=== PATIENT | male | born 2000 | race Caucasian/White ===

== ENCOUNTER 2020-05-14 22:18 | Emergency (ER) | payer BC, SELFPAY ==
--- NOTE | 2020-05-14 22:15 | DI.RAD_ITS ---
EXAM: XR FINGER RT RING CLINICAL HISTORY: crush of fingr tip. TECHNIQUE: 2D digital imaging was performed. COMPARISON: No exams were available for comparison FINDINGS: BONES: Nondisplaced tuft fracture.. No bony destructive lesion is seen. JOINTS: No dislocation present. SOFT TISSUE: Normal. IMPRESSION: Nondisplaced tuft fracture. DATA REPOSITORY: RADIATION DOSE DELIVERED:
[2020-05-14 22:26] VITALS: BP 146/93; PULSE 86; RESP 16; TEMP 36.6; O2SAT 98
--- NOTE | 2020-05-14 22:28 | W.ED.GENAD ---
Discharge Plan Disposition Patient Disposition: HOME Condition: Good Discharge Details Clinical Impression: Contusion of right ring finger Primary Care Provider: None,None ED Provider: Abebe Leyva Home Meds and New Rx's Prescriptions: New cephalexin 500 mg capsule 500 mg PO QID 5 Days Qty: 20 RF: 0 Discharge Instructions Instructions: Subungual Hematoma (ED), Contusion in Adults (ED) Additional Instructions: At this time you do have a small fracture at the distal tip of your finger. Will take a few weeks to heal. Please take the antibiotic as directed to prevent any infection. I would anticipate some drainage from the nail where we cut the nail itself. Eventually the end portion of your fingernail will fall off in diet and will regrow. It will take months for this to finalize. Take Tylenol and Motrin as needed for pain. Please keep the splint on if there is any pain or tenderness. If you notice any worsening of your symptoms, or any new symptoms such as vomiting, diarrhea, fever, chills, shortness of breath, chest pain, numbness, weakness, or fainting , please return immediately to the emergency department for reevaluation. Please follow up with your primary care provider as soon as possible for reassessment and reevaluation. As always, it was a pleasure participating in your medical care today. Medical Decision Making 20-year-old male with no significant past medical history presents today for evaluation of crush injury to the distal tip of his right dominant hand at the tip of the fourth finger. It occurred in about 2 PM today while he is working on his truck, however pain gradually worsened throughout the day and he states that his girlfriend recommended he come in to get checked out. Aside for pain in the distal tip of the fourth finger on the right hand she denies any other complaints or any other injury. Pain is made worse with movement. Improved by nothing. No other complaints at this time. Exam demonstrates contusion and subungual hematoma of the distal tip of the fourth finger on the right dominant hand. Normal neurovascular exam otherwise. Injuries concerning for crush injury and potential distal tuft fracture. Is able to flex and extend well. We will get an x-ray and reassess. Will update his tetanus. 11 PM X-ray results show evidence of tuft fracture. We did trephinate the nail, he tolerated this well. We will give Keflex for home use. We did put a splint on. I have extensively reviewed the treatment plan and discharge instructions with the patient. I have addressed all patient concerns at this time. The patient was made aware of what symptoms to monitor for that would warrant a return to the emergency department. Discussed the plan with the patient, they demonstrate verbal understanding and agreement with our assessment and plan at this time. The documentation in this chart was dictated using [employer] dictation software. Please excuse any dictation errors. FINDINGS: Bones/joints: Tuft fracture of the 4th digit. Soft tissues: Normal. IMPRESSION: Tuft fracture of the 4th digit. Thank you for allowing us to participate in the care of your patient. Dictated and Authenticated by: Vincent Snyder MD 05/14/2020 11:04 PM Eastern Time ([place] & [place]) HPI General Date/Time Provider Initiated Documentation: 05/14/20 22:23. HPI Narrative: 20-year-old male with no significant past medical history presents today for evaluation of crush injury to the distal tip of his right dominant hand at the tip of the fourth finger. It occurred in about 2 PM today while he is working on his truck, however pain gradually worsened throughout the day and he states that his girlfriend recommended he come in to get checked out. Aside for pain in the distal tip of the fourth finger on the right hand she denies any other complaints or any other injury. Pain is made worse with movement. Improved by nothing. No other complaints at this time. Related Data Home Medications Medication Instructions Recorded Confirmed cephalexin 500 mg PO QID 5 Days #20 cap 05/14/20 Previous Rx's Medication Instructions Recorded cephalexin 500 mg PO QID 5 Days #20 cap 05/14/20 Review of Systems All systems reviewed & are unremarkable except as noted in HPI and below PFSH Social History Smoking/Tobacco Use Status: Never Smoking risk assessment performed?: Yes Alcohol Intake: never Substance use type: does not use Do you feel safe at home: Yes Do you feel safe in your relationship?: Yes Exam Narrative Exam Narrative: 1.Const: Well-nourished, Well-developed, appearing stated age 2.Eyes: PERRL, no conjunctival injection, and symmetrical lids. 3.ENT: Atraumatic external nose and ears. Moist MM. Neck: Symmetric, trachea midline, No thyromegaly. 4.CVS: +S1/S2, No murmurs or gallops. Peripheral pulses 2+ and equal in all extremities. Brisk capillary refill in all extremities. 5.RESP: Unlabored respiratory effort. Clear to auscultation bilaterally. No wheezes rales or rhonchi 6.GI: Soft, Nontender/Nondistended, No hepatosplenomegaly. No guarding or rebound. 7.MSK: Patient's right hand fourth finger at the distal tip demonstrates evidence of a subungual hematoma, mild blood at the tip, and notable contusion. Patient is able to flex and extend both the PIP interphalangeal joint and distal inner phalangeal joint. Sensation otherwise intact. 8.Skin: Warm, Dry. No rashes or lesions. 9.Neuro: supervisor malted milk II-XII grossly intact. Sensation grossly intact, no focal neurologic deficits. 10.Psych: (AAO) x3. Appropriate mood and affect Procedures Nail Trephination Time out: Yes Location (finger): right and ring Method of drainage: nail cautery Procedure successful: Yes Patient tolerated procedure: well and no complications
[2020-05-14] MEDS: Cephalexin 500 MG CAP, 4 CAPS/BTL PO (23:00)
--- NOTE | 2020-05-14 23:00 | NUR.NOTE ---
Nursing Note: finger splint placed to affected digit, gauze placed at tip of finger and tube gauze placed around entire finger per Dr Leyva . Pt educated regarding use and has no further questions over split use
--- NOTE | 2020-05-14 23:04 | DI.VRAD_ITS ---
PROCEDURE INFORMATION: Exam: XR Right Finger(s) Exam date and time: 05/14/2020 10:26 PM Age: 20 years old Clinical indication: Injury or trauma; Other: Crushed working on car; Crushing; Right; Ring finger; Injury date: 05/14/20; Injury details: Finger tip crushed when working on car TECHNIQUE: Imaging protocol: XR Right fingers. Views: Minimum 2 views. COMPARISON: No relevant prior studies available. FINDINGS: Bones/joints: Tuft fracture of the 4th digit. Soft tissues: Normal. IMPRESSION: Tuft fracture of the 4th digit. Dictated and Authenticated by: Vincent Snyder MD. Ordering:JOSÉ LUIS Lomas MD
== END 2020-05-14 22:59 | disposition home or self-care (01) ==
LOC: ER 22:32
PROVIDERS: Emergency Provider Student in an Organized Health Care Education/Training Program
DX: S67.194A Crushing injury of right ring finger, initial encounter (principal); S62.634A Displaced fracture of distal phalanx of right ring finger, initial encounter for closed fracture; W23.1XXA Caught, crushed, jammed, or pinched between stationary objects, initial encounter
CPT/HCPCS: 11740; 26750; 73140

== ENCOUNTER 2023-03-23 12:53 | Outpatient (REF) | payer BC, SELFPAY ==
[2023-03-26 19:16] LABS: Rheumatoid Factor <8.6 IU/mL (<12.0)
[2023-03-29 10:55] LABS: Cyclic Citrullinated Peptide <2.5 U/mL (<5.0)
== END 2023-03-23 12:54 | disposition home or self-care (01) ==
LOC: NCHCN 12:53
PROVIDERS: Visit Provider Student in an Organized Health Care Education/Training Program
DX: Z83.49 Family history of other endocrine, nutritional and metabolic diseases (principal)
CPT/HCPCS: 81256; 86200; 86431

== ENCOUNTER 2023-03-25 17:29 | Outpatient (CLI) | payer BC, SELFPAY ==
[2023-03-30 14:28] LABS: Specimen WB Whole Blood
== END 2023-03-25 17:30 | disposition home or self-care (01) ==
LOC: LBO 17:29
PROVIDERS: Visit Provider Student in an Organized Health Care Education/Training Program
DX: Z83.49 Family history of other endocrine, nutritional and metabolic diseases (principal)
CPT/HCPCS: 36415; 81256

== ENCOUNTER 2023-04-12 17:58 | Emergency (ER) | payer BC, SELFPAY ==
[2023-04-12 18:02] VITALS: BP 141/73; PULSE 93; RESP 20; TEMP 36.7; O2SAT 100
[2023-04-12 18:17] VITALS: PULSE 78; RESP 18; TEMP 36.8
--- NOTE | 2023-04-12 22:27 | ED.GENADUL_ITS ---
Discharge Plan Disposition Patient Disposition: Home Discharge Details Clinical Impression: Throat ulcer, Contusion of right ring finger, Pharyngitis Primary Care Provider: Rusty West ED Provider: Honey Encinas Home Meds and New Rx's Prescriptions: No Action No Known Home Meds Discharge Instructions Instructions: Pharyngitis (ED) Additional Instructions: Ibuprofen and Tylenol as needed for pain Cepacol lozenges as needed for discomfort Your swabs will return in 72 hours, we will call you if any of your swabs are positive Return should you have new or worsening Referrals: Rusty West [Primary Care Provider] - HPI General Date/Time Provider Initiated Documentation: 04/12/23 18:26 . HPI Narrative: This 23-year-old male presents with report of sore throat with ulcer. Patient states symptoms started approximately a week ago. States he is able to swallow and actually he feels slightly better today. He denies any fever or chills. He denies any rashes or lesions. He does report sexual activity that last episode of sexual contact was approximately 3 months ago per patient. Denies known risk of STD. Related Data Home Medications Medication Instructions Recorded Confirmed Unknown [No Known Home Meds] 04/12/23 04/12/23 Allergies Allergy/AdvReac Type Severity Reaction Status Date / Time No Known Allergies Allergy Verified 04/12/23 18:06 General Stated Complaint: Sorethroat LITZY: 4 Course Vital Signs Vital signs: Vital Signs Temperature 36.7 C 04/12/23 18:02 Pulse 93 H 04/12/23 18:02 Respiratory Rate 20 04/12/23 18:02 Blood Pressure 141/73 H 04/12/23 18:02 Pulse Oximetry 100 04/12/23 18:02 Temperature 36.8 C 04/12/23 18:17 Temperature Source Temporal Artery Scan 04/12/23 18:17 Pulse 78 04/12/23 18:17 Respiratory Rate 18 04/12/23 18:17 Respiratory Effort Normal 04/12/23 18:05 Blood Pressure 141/73 H 04/12/23 18:02 Blood Pressure Position Sitting 04/12/23 18:02 Pulse Oximetry 100 04/12/23 18:02 Oxygen Delivery Method Room Air 04/12/23 18:02 Oxygen Flow Rate 0 04/12/23 18:02 Lab/Test Results Lab/Test Results: 04/12/23 18:04 Tonsil - Not Specified Group A Streptococcus Culture - Pending POC Strep Test-TEODORA(Rapid) Start: 04/12/23 18:12 Freq: .Rapid Strep Test Status: Active Protocol: Document 04/12/23 18:14 (Rec: 04/12/23 18:15 [id number]) Strep test-TEODORA(Rapid)-POC POC-Strep test-TEODORA (Rapid) Negative POC-Strep test-TEODORA (Rapid) Negative Medical Decision Making This 23-year-old male presents with report of sore throat, he has erythema to his oropharynx with an ulcer on the left side He is maintaining secretions without trismus and in no acute distress Strep is negative, culture pending GC chlamydia and herpes swab pending Will continue with supportive care, Motrin and Tylenol Return precautions reviewed and patient expressed understanding Quality:SDOH Health Related Social Needs: No Data to Display PFSH All Active Problems (Updated 04/12/23 @ 18:52 by JENNIE Mayo) Pharyngitis (Acute) Throat ulcer (Acute) Contusion of right ring finger (Acute) Social History Smoking/Tobacco Use Status: Never Smoking risk assessment performed?: Yes Alcohol Intake: never Substance use type: does not use Do you feel safe at home: Yes Do you feel safe in your relationship?: Yes PAWSS Have you Been Recently Intoxicated or Drunk Within the Last 30 days?: No Have you Ever Experienced Previous Episodes of Alcohol Withdrawal?: No Have you ever Experienced Withdrawal Seizures?: No Have you ever Experienced Delirium Tremens(DT)s?: No Have you ever undergone Alcohol Rehabilitation Treatment (i.e, inpt ot outpatient treatment programs)?: No Have you ever Experienced Blackouts?: No Have you ever Combined Alcohol with other Downers within the last 90 days?: No Have you ever Combined Alcohol with any other Substance of Abuse during the last 90 days?: No Positive Blood Alcohol level on Presentation? [PCS.BAL]: No Evidence of Increased Autonomic Activity (i.e. HR>120, tremor, sweating, agitation, nausea)?: No Result: 0
[2023-04-14 14:33] LABS: HSV 1 DNA Result Negative (Negative); HSV 2 DNA Result Negative (Negative)
[2023-04-14 14:52] LABS: Chlamydia Result Negative (Negative); GC Result Negative (Negative)
== END 2023-04-12 19:09 | disposition home or self-care (01) ==
PROVIDERS: Emergency Provider Physician Assistant; PCP Student in an Organized Health Care Education/Training Program
DX: J02.9 Acute pharyngitis, unspecified (principal); J39.2 Other diseases of pharynx; S60.041A Contusion of right ring finger without damage to nail, initial encounter; X58.XXXA Exposure to other specified factors, initial encounter
CPT/HCPCS: 87491; 87529; 87591; 99283; 87081

== ENCOUNTER 2023-04-15 18:00 | Outpatient (CLI) | payer BC, SELFPAY ==
[2023-04-15 16:49] LABS: HCT 44.3 % (40.0-50.0); HGB 15.8 g/dL (13.5-17.5); MCH 32.6 pg (27.0-33.0); MCHC 35.7 % (32.0-36.0); MCV 91 fL (80-95); MPV 9.5 fL (8.0-11.0); Platelet Count 241 10^3/uL (130-400); RBC 4.85 10^6/uL (4.36-5.78); RDW 11.9 % (11.8-14.1); RDW-SD 39.6 fL; WBC 6.71 10^3/uL (4.4-10.8)
[2023-04-15 17:41] LABS: Iron 101 ug/dL (65-175); Total Iron Binding Capacity 321 ug/dL (250-450); Transferrin Sat 31 % (20-55)
[2023-04-15 17:54] LABS: Ferritin 99 ng/mL (26-388)
[2023-04-20 14:16] LABS: Transferrin 257 mg/dL (201-352)
== END 2023-04-15 18:01 | disposition home or self-care (01) ==
LOC: LBO 18:02
PROVIDERS: PCP Student in an Organized Health Care Education/Training Program; Visit Provider Student in an Organized Health Care Education/Training Program
DX: Z83.49 Family history of other endocrine, nutritional and metabolic diseases (principal)
CPT/HCPCS: 36415; 85027; 82728; 83540; 83550; 84466

== ENCOUNTER 2023-04-26 20:29 | Emergency (ER) | payer BC, SELFPAY ==
[2023-04-26 20:45] VITALS: BP 169/89; PULSE 99; RESP 14; TEMP 37.2; O2SAT 99
[2023-04-26 21:07] LABS: Bilirubin Negative (Negative); Blood Negative (Negative); Clarity Clear (Clear); Glucose Negative (Negative); Ketones Negative (Negative); Leukocyte Esterase Negative (Negative); Nitrite Negative (Negative); Urobilinogen 0.2 mg/dL (Up to 0.2); pH 6.5 (5-8)
--- NOTE | 2023-04-26 21:27 | ED.GENADUL_ITS ---
Discharge Plan Disposition Patient Disposition: Home Discharge Details Clinical Impression: Left testicular pain Primary Care Provider: Rusty West ED Provider: Evelyn David Home Meds and New Rx's Prescriptions: No Action No Known Home Meds Discharge Instructions Instructions: Testicular Torsion (ED), Testicle Pain (ED) Additional Instructions: if you develop severe pain, please return to an ED as quickly as possible an outpatient ultrasound has been ordered, please call to schedule wear supportive garments (like brief underwear) HPI General Date/Time Provider Initiated Documentation: 04/26/23 20:51 . Limitations to Documentation: no limitations . Information obtained by: patient . HPI Narrative: 23-year-old gentleman without significant past medical history presents for evaluation of left testicular pain. Reports the pain has been intermittent for the last year. No exacerbating relieving factors. He reports that the pain is a dull ache. He has no nausea, dysuria. Denies any abdominal pain. Denies any vomiting. He does not report any recent sexual activity. He does report prior ultrasound that did results reveal a varicocele of the left testicle. Related Data Home Medications Medication Instructions Recorded Confirmed Unknown [No Known Home Meds] 04/12/23 04/12/23 Allergies Allergy/AdvReac Type Severity Reaction Status Date / Time No Known Allergies Allergy Verified 04/12/23 18:06 General Stated Complaint: Male Reproductive Problem LITZY: 3 Exam Narrative Exam Narrative: Review of Systems: All systems reviewed & are unremarkable except as noted in HPI and below Well-developed, no acute distress NCAT PERRL, normal conjunctiva RRR Unlabored respiratory effort Nondistended abdomen , nontender Penis circumcised, no lesions, nontender bilateral testicles with intact cremasterics reflex, nontender, not enlarged, not high riding, not firm, not red Extremities w/o deformity, no cyanosis, no edema No rashes or lesions. no focal neurologic deficits Appropriate mood and affect Course Vital Signs Vital signs: Vital Signs Temperature 37.2 C 04/26/23 20:45 Pulse 99 H 04/26/23 20:45 Respiratory Rate 14 04/26/23 20:45 Blood Pressure 169/89 H 04/26/23 20:45 Pulse Oximetry 99 04/26/23 20:45 Temperature 37.2 C 04/26/23 20:45 Temperature Source Temporal Artery Scan 04/26/23 20:45 Pulse 99 H 04/26/23 20:45 Respiratory Rate 14 04/26/23 20:45 Respiratory Effort Normal, Non-Labored 04/26/23 21:12 Blood Pressure 169/89 H 04/26/23 20:45 Blood Pressure Position Sitting 04/26/23 20:45 Pulse Oximetry 99 04/26/23 20:45 Oxygen Delivery Method Room Air 04/26/23 20:45 Oxygen Flow Rate 0 04/26/23 20:45 Pain Level 4 04/26/23 20:45 Lab/Test Results Lab/Test Results: Laboratory Tests Range/Units 04/26/23 20:51 Urine Color (Yellow) Yellow Urine Clarity (Clear) Clear Urine pH (5-8) 6.5 Ur Specific [place] (1.005-1.025) 1.020 Urine Protein (Neg-Trace) mg/dL Negative Urine Ketones (Negative) mg/dL Negative Urine Blood (Negative) Negative Urine Nitrite (Negative) Negative Urine Bilirubin (Negative) Negative Urine Urobilinogen (Up to 0.2) mg/dL 0.2 Ur Leukocyte Esterase (Negative) Negative Urine Glucose (Negative) mg/dL Negative Medical Decision Making Emergent evaluation of left testicular pain. Examination is benign and reassuring. Symptoms have been ongoing intermittently for the last year. Have a low suspicion for testicular torsion given the timing and examination. At this time I am unable to get an ultrasound. The patient does report a history of varicocele which would seem more consistent with his symptoms. Urinalysis was obtained and there is no signs of infection. He has not been sexually act shiela in several months so we will lower suspicion for an infectious etiology like an epididymitis. Discussed potential options with the patient including transfer to another department where an ultrasound is available, returning early in the morning for an ultrasound when tech is available. However the patient reports that the symptoms are not that bad and he does not want to call anyone in from home. I have ordered an outpatient ultrasound with instructions for the patient to return tomorrow for this examination. He states that he will try to rearrange his work schedule so that he can do this. He understands to return to the emergency department if he develops severe pain and we discussed signs and symptoms concerning for torsion. Otherwise recommended supportive garments for symptom control. Quality:SDOH Health Related Social Needs: No Data to Display PFSH All Active Problems Left testicular pain (Acute) Pharyngitis (Acute) Throat ulcer (Acute) Contusion of right ring finger (Acute) Social History Smoking/Tobacco Use Status: Never Smoking risk assessment performed?: Yes Alcohol Intake: never Substance use type: does not use Do you feel safe at home: Yes Do you feel safe in your relationship?: Yes
--- NOTE | 2023-04-27 10:28 | NUR.NOTE ---
Accessed Pt chart to see if the Ultrasound was ordered for the patient. Dr Small will be writing up the order for the Pt.
== END 2023-04-26 21:30 | disposition home or self-care (01) ==
PROVIDERS: Emergency Provider Emergency Medicine; PCP Student in an Organized Health Care Education/Training Program
DX: N50.812 Left testicular pain (principal); R11.0 Nausea
CPT/HCPCS: 99281; 81003; 99282

== ENCOUNTER 2023-08-04 20:05 | Outpatient (REF) | payer BC, SELFPAY ==
[2023-08-05 18:55] LABS: HIV-1/2 Ag & Ab Screen Negative (Negative)
[2023-08-06 13:40] LABS: Syphilis Serology (RPR) Negative (Negative)
== END 2023-08-04 20:06 | disposition home or self-care (01) ==
LOC: NCHCN 20:05
PROVIDERS: PCP Student in an Organized Health Care Education/Training Program; Visit Provider Student in an Organized Health Care Education/Training Program
DX: Z11.3 Encounter for screening for infections with a predominantly sexual mode of transmission (principal); Z11.4 Encounter for screening for human immunodeficiency virus [HIV]
CPT/HCPCS: 87389; 86592

== ENCOUNTER 2023-09-09 12:16 | Outpatient (REF) | payer BC, SELFPAY ==
--- OUTSIDE RECORDS SUMMARY | 2023-09-09 12:22 | XMS_ITS | Encounter Summary ---
Author Organization [facility] Address [address] [place] [address] Care Team Providers Care School Health Assistant Name Role Phone Rusty West Primary Care Provider [phone] Encounter Details Date Type Department Care Team (Late st Contact Info) Description 08/05/2023 Lab Requisition [facility] Pathology & Laboratory Medicine - [address] [id number] Outr Resulting Lab, Provider Social History Tobacco Use Types Packs/Day Years Used Date Smoking Tobacco: Never Assessed Sex and Gender Information Value Date Recorded Sex Assigned at Not on file Gender Identity Male 08/11/2023 8:16 EDT Sexual Orientation Not on file documented as of this encounter Plan of Treatment Not on file documented as of this encounter Procedures Procedure Name Priority Date/Time Associated Diagnosis Comments SYPHILIS SEROLOGY Routine 08/04/2023 12: 58 EDT documented in this encounter Results * SYPHILIS SEROLOGY (08/04/2023 12:58 EDT) Syphilis Serology Negative Negative 08/06/2023 13:36 EDT [facility] Blood VENOUS BLOOD / Unknown 08/04/2023 12:58 EDT 08/05/2023 17:06 EDT Provider Outr Resulting Lab IMMUNOLOGY A ND SEROLOGY ORDERABLES [facility] [address], [place] [id number] documented in this encounter Visit Diagnoses Not on filedocumented in this encounter Care Teams School Health Assistant Relationship Specialty Start Date End Date [place] [id number] PCP - General Internal Medicine - Primary Care 08/11/23 documented as of this encounter
--- OUTSIDE RECORDS SUMMARY | 2023-09-09 12:22 | XMS_ITS | Referral Summary ---
Author Organization [facility] Address [address] [place] [address] Care Team Providers Care Yarn Examiner Skeins Name Role Phone Rusty West Primary Care Provider [phone] Encounters Date Type Department Care Team Description 08/11/2023 8:34 EDT - 08/11/2023 23:59 EDT Hospital Encounter [facility] Xray [address] [place] [address] Sprain of unspecified part of right wrist and hand, initial encounter Discharge Disposition: Home or Self Care 08/05/2023 Lab Requisition [facility] Pathology & Laboratory Medicine [address] [address] Outr Resulting Lab, Provider 08/05/2023 Lab Requisition [facility] Pathology & Laboratory [address] [address] Outr Resulting Lab, Provider from Last 3 Months Social History Tobacco Use Types Packs/Day Years Used Date Smoking Tobacco: Never Assessed Sex and Gender Information Value Date Recorded Sex Assigned at Not on file Gender Identity Male 08/11/2023 8:16 EDT Sexual Orientation Not on file Plan of Treatment Not on file Procedures Procedure Name Priority Date/Time Associated Diagnosis Comments XR HAND RIGHT 3 OR MORE VIEWS STAT 08/11/2023 9:01 EDT Sprain of unspecified part of right wrist and hand, initial encounter XR WRIST RIGHT 3 OR MORE VIEWS STAT 08/11/2023 9:01 EDT Sprain of unspecified part of right wrist and hand, initial encounter HIV 1/2 ANTIGEN AND ANTIBODY, 4TH GENERATION Routine 08/04/2023 12:58 EDT SYPHILIS SEROLOGY Routine 08/04/2023 12: 58 EDT from Last 3 Months Results * XR WRIST RIGHT 3 OR MORE VIEWS (08/11/2023 9:01 EDT) Anatomical Region Laterality Modality Upper Extremities Right Computed Radio graphy 08/11/2023 9:50 EDT Impressions 08/11/2023 9:50 EDT No fracture identified in the right hand or wrist. [id number] Narrative 08/11/2023 9:50 EDT XR HAND RIGHT 3 OR MORE VIEWS XR WRIST RIGHT 3 OR MORE VIEWS ?? Signs and Symptoms/Comments: ??right hand sprain.;S63.91XA:Sprain of unspecified part of right wrist and hand, initial encounter. Sprain of right wrist. Comparison: None. FINDINGS: RIGHT HAND: 3 views. Bones: No acute fracture or malalignment. Degenerative changes: No significant degenerative changes. Soft tissues: Unremarkable. RIGHT WRIST: 3 views. Bones: No acute fracture or malalignment. Degenerative changes: No significant degenerative changes. Soft tissues: Unremarkable. Resulting Agency Comment [id number] Procedure Note David Pang MD - 08/11/2023 XR HAND RIGHT 3 OR MORE VIEWS XR WRIST RIGHT 3 OR MORE VIEWS Signs and Symptoms/Comments: right hand sprain.;S63.91XA:Sprain ofunspecified part of right wrist and hand, initial encounter. Sprain ofright wrist. Comparison: None. FINDINGS: RIGHT HAND: 3 views. Bones: No acute fracture or malalignment. Degenerative changes: No significant degenerative changes. Soft tissues: Unremarkable. RIGHT WRIST: 3 views. Bones: No acute fracture or malalignment. Degenerative changes: No significant degenerative changes. Soft tissues: Unremarkable. IMPRESSION No fracture identified in the right hand or wrist. [id number] Emmy West MD IM DIAGNOSTIC IMAGING ORDERABLES * XR HAND RIGHT 3 OR MORE VIEWS (08/11/2023 9:01 EDT) Anatomical Region Laterality Modality Upper Extremities Right Computed Radio graphy 08/11/2023 9:50 EDT Impressions 08/11/2023 9:50 EDT No fracture identified in the right hand or wrist. [id number] Narrative 08/11/2023 9:50 EDT XR HAND RIGHT 3 OR MORE VIEWS XR WRIST RIGHT 3 OR MORE VIEWS ?? Signs and Symptoms/Comments: ??right hand sprain.;S63.91XA:Sprain of unspecified part of right wrist and hand, initial encounter. Sprain of right wrist. Comparison: None. FINDINGS: RIGHT HAND: 3 views. Bones: No acute fracture or malalignment. Degenerative changes: No significant degenerative changes. Soft tissues: Unremarkable. RIGHT WRIST: 3 views. Bones: No acute fracture or malalignment. Degenerative changes: No significant degenerative changes. Soft tissues: Unremarkable. Resulting Agency Comment [id number] Procedure Note David Pang MD - 08/11/2023 XR HAND RIGHT 3 OR MORE VIEWS XR WRIST RIGHT 3 OR MORE VIEWS Signs and Symptoms/Comments: right hand sprain.;S63.91XA:Sprain ofunspecified part of right wrist and hand, initial encounter. Sprain ofright wrist. Comparison: None. FINDINGS: RIGHT HAND: 3 views. Bones: No acute fracture or malalignment. Degenerative changes: No significant degenerative changes. Soft tissues: Unremarkable. RIGHT WRIST: 3 views. Bones: No acute fracture or malalignment. Degenerative changes: No significant degenerative changes. Soft tissues: Unremarkable. IMPRESSION No fracture identified in the right hand or wrist. [id number] Emmy West MD IMG DIAGNOSTIC IMAGING ORDERABLES * SYPHILIS SEROLOGY (08/04/2023 12:58 EDT) Syphilis Serology Negative Negative 08/06/2023 13:36 EDT [facility] Blood VENOUS BLOOD / Unknown 08/04/2023 12:58 EDT 08/05/2023 17:06 EDT Provider Outr Resulting Lab IMMUNOLOGY A ND SEROLOGY ORDERABLES Performing Organization Address [facility]/ZIP Co de Phone Number [facility] [address] [place], [place] [id number] * HIV 1/2 ANTIGEN AND ANTIBODY, 4TH GENERATION (08/04/2023 12:58 EDT) HIV 1 and 2 Antibody/p24 Antigen, 4th Generation Negative Negative 08/05/2023 18:51 EDT [facility] Comment:If acute HIV-1 infec tion is suspected in a high risk patient, submit plasma specimen for HIV-1 RNA quantitation test. Blood VENOUS BLOOD / Unknown 08/04/2023 12:58 EDT 08/05/2023 17:06 EDT Narrative [facility] - 08/05/2023 18:51 EDT Fourth Generation assay performed on the Siemens Centaur XPT. Provider Outr Resulting Lab IMMUNOLOGY A ND SEROLOGY ORDERABLES Performing Organization Address City/[facility] Co de Phone Number [facility] [address] [place], [place] [id number] from Last 3 Months Sacha Quiñones Personal/Family Self [address] [place] [address] Sacha Quiñones Personal/Family Self [address] [place] [address] Sacha Quiñones Personal/Family Self [address] [place] [address] Sacha Quiñones Personal/Family Self [address] [place] [address] Care Teams Yarn Examiner Skeins Relationship Specialty Start Date End Date Rusty West [facility] [place] [address] PCP - General Internal Medicine - Primary Care 08/11/23
--- OUTSIDE RECORDS SUMMARY | 2023-09-09 12:22 | XMS_ITS | Encounter Summary ---
Author Organization [facility] Address [address] [place] [address] Care Team Providers Care Head Still Operator Name Role Phone Rusty West Primary Care Provider [phone] Encounter Details Date Type Department Care Team (Late st Contact Info) Description 08/05/2023 Lab Requisition [facility] Pathology & Laboratory Medicine - [facility] [address] [place], [place] [address] Outr Resulting Lab, Provider Social History Tobacco [...] Procedure Name Priority Date/Time Associated Diagnosis Comments HIV 1/2 ANTIGEN AND ANTIBODY, 4TH GENERATION Routine 08/04/2023 12:58 EDT documented in this encounter Results * HIV 1/2 ANTIGEN AND ANTIBODY, 4TH GENERATION (08/04/2023 12:58 EDT) HIV 1 and 2 Antibody/p24 Antigen, 4th Generation Negative Negative 08/05/2023 18:51 EDT [facility] Comment:If acute HIV-1 infec tion is suspected in a high risk patient, submit plasma specimen for HIV-1 RNA quantitation test. Blood VENOUS BLOOD / Unknown 08/04/2023 12:58 EDT 08/05/2023 17:06 EDT Narrative [facility] - 08/05/2023 18:51 EDT Fourth Generation assay performed on the Siemens Centaur XPT. Provider Outr Resulting Lab IMMUNOLOGY A ND SEROLOGY ORDERABLES [facility] [address] [place] [address] documented in this encounter Visit Diagnoses Not on filedocumented in this encounter Care Teams Head Still Operator Relationship Specialty Start Date End Date Rusty West [facility] [place] [address] PCP - General Internal Medicine - Primary Care 08/11/23 documented as of this encounter
--- OUTSIDE RECORDS SUMMARY | 2023-09-09 12:22 | XMS_ITS | Encounter Summary ---
Author Organization [facility] Address [address] [place] [address] Care Team Providers Care Intervention Teacher Name Role Phone Rusty West Primary Care Provider [phone] Encounter Details Date Type Department Care Team (Late st Contact Info) Description 04/16/2023 Lab Requisition [facility] Pathology & Laboratory Medicine - [address] [id number] Outr Resulting Lab, Provider Social History Tobacco [...] Procedure Name Priority Date/Time Associated Diagnosis Comments TRANSFERRIN Routine 04/15/2023 16:40 EST documented in this encounter Results * TRANSFERRIN (04/15/2023 16:40 EST) Transferrin 257 201 - 352 mg/dL 04/20/2023 14:12 EDT [facility] Blood VENOUS BLOOD / Unknown 04/15/2023 16:40 EST 04/16/2023 17:03 EST Provider Outr Resulting Lab CHEMISTRY & BLOOD GAS ORDERABLES [facility] [address] [place], [place] [address] documented in this encounter Visit Diagnoses Not on filedocumented in this encounter Care Teams Intervention Teacher Relationship Specialty Start Date End Date Rutsy [place] [address] PCP - General Internal Medicine - Primary Care 08/11/23 documented as of this encounter
--- OUTSIDE RECORDS SUMMARY | 2023-09-09 12:22 | XMS_ITS | Encounter Summary ---
Author Organization [facility] Address [address] [place] [address] Care Team Providers Care Retail Selling Specialist Name Role Phone Rusty West Primary Care Provider [phone] Encounter Details Date Type Department Care Team (Late st Contact Info) Description 04/13/2023 Lab Requisition [facility] Pathology & Laboratory Medicine - [facility] [address] [place], [place] [address] Outr Resulting Lab, Provider Social History Tobacco [...] Procedure Name Priority Date/Time Associated Diagnosis Comments HSV (HERPES SIMPLEX VIRUS) MOLECULAR DETECTION, PCR Routine 04/12/2023 19:00 EST documented in this encounter Results * HSV (HERPES SIMPLEX VIRUS) MOLECULAR DETECTION, PCR (04/12/2023 19:00 EST) Herpes Simplex Virus Molecular Detection 1, PCR Negative Negative 04/14/2023 14:28 EST [facility] Herpes Simplex Virus Molecular Detection 2, PCR Negative Negative 04/14/2023 14:28 EST [facility] Swab ORAL CAVITY STRUCTURE / Unknown 04/12/2023 19:00 EST 04/13/2023 17:17 EST Provider Outr Resulting Lab MICROBIOLOGY - GENERAL ORDERABLES [facility] [address] [place] [address] documented in this encounter Visit Diagnoses Not on filedocumented in this encounter Care Teams Retail Selling Specialist Relationship Specialty Start Date End Date Rusty West [facility] [place] [phone] PCP - General Internal Medicine - Primary Care 08/11/23 documented as of this encounter
--- OUTSIDE RECORDS SUMMARY | 2023-09-09 12:22 | XMS_ITS | Continuity of Care Document ---
Author Organization [facility], [facility] Address [address] [place] [address] Assessment No assessment recorded. Plan of Treatment Reminders Order Date Submit Date Provider Last Modified By Organization Details Last Modified Time Details Appointments Annual Wellness Exam 40 2024 01:00P M Zeeshan West Not available Not available Not available Lab None recorded. Referral None recorded. Procedures None recorded. Surgeries None recorded. Imaging None recorded. Medication Orders amoxicill in 875 mg-potass ium clavulana te 125 mg tablet 2023 024 [facility], [address] [place], [address], 08/04/2023 11:40:31 Patient TargetsNo targets recorded. Patient Instructions Encounter Date Encounter Id Patient Instructions Last Modified By Organization Details Last Modified Time 07/12/2023 [id number] Acute Sinusitis: Care Instructions Not available 07/12/2023 13:43:02 saline nasal washes: care instructions [email or web address] Not available 07/12/2023 13:43:02 Reason for Referral None Reported. Results Created Date Observation Date Name Description Value Unit Range Abnormal Flag LastModifiedBy Organization Detail LastModifiedTime 08/13/19 24 04/27/2023 ultra sound imagi ng repor t Patijen t Name: IshmaelSacha Diaz Unit #: [id number] Loc: DI Orderi ng Provid er: Jose Clements M.D. Accoun t #: [id number] Status : REG CLI Primar y Care Provid er: Ila West Date of Exam: 04/08 11/01 Sex: M Admiss ion Date: : 2000 Age: 23 Addend a: Exam(s ) US SCROTU M ADDEND UM: The images were review ed. I agree with the findin gs and impres niharika below. Dictat ed By: Sam Ellington Sam Ellington 1509 Transc ribed By: Zoya Cao Exam(s ) US SCROTU M EXAM: US SCROTU M CLINIC AL HISTOR Y: L testic ular pain TECHNI QUE: Ultras ound of the testes perfor med using graysc percy, color, and Dopple r imagin g. COMPAR URSZULA: No exams were availa ble for compar urszula FINDIN GS: RIGHT HEMISC ROTUM: The right testic le exhibi ts normal size and echo manisha ecture with no eviden ce of intrat esticu lar mass. Vascul ar flow was demons trated within the right testic le, includ ing arteri al wavefo lincoln. The epidid ymis appear s unrema rkable . There are no epidid ymal head cysts. There has a small right- sided hydroc rosalia. No varico nidia. LEFT HEMISC ROTUM: The left testic le exhibi ts normal size and echo manisha ecture with no eviden ce of intrat esticu lar mass. Vascul ar flow is demons trated within the left testic le, includ ing arteri al wavefo lincoln. The epidid ymis appear s unrema rkable . There are no epidid ymal head cysts. There is a small left-s ided hydroc rosalia. There is also mild-m oderat e left-s ided varico nidia. IMPRES NIHARIKA: 1. No eviden ce of testic ular mass nor testic ular torsio n. 2. Small bilate ral hydroc eles 3. Unilat eral left varico nidia noted DATA REPOSI TORY: Testin g testin g Ordere d By: Jose Clements M.D. CC: ------ ------ ------ ------ ------ ------ ------ ------ ------ ------ ------ ------ - Dictat ed By: Rob Arita M.D. 1455 [id number] Transc ribed By: Lyla PALAFOX,Alex wilcox 1455 This is privil eged, confid ential inform ation intend ed only for the provid er named. Any use or distri bution by any person other than this provid er is strict ly prohib ited. If you receiv e this report in error, please notify us immedi adamly at [phone] and return the origin al report to us at the addres s above. Thank- you. [email or web address] [facility] [address] , [place], [address] 08/16/2023 14:23:04 Result Notes None recorded. Problems Name Status Onset Date Resolution Date Notes Provider Name and Address Organization Details Recorded Time Prepatellar bursitis of left knee Active 2017 ANCELMO BRAVO, [facility], [facility]. 4 16:16:00 Pharyngitis Active 2018 ANCELMO BRAVO, [facility] 4 16:20:43 Erectile dysfunction due to psychophysiologic disorder Active 2023 ANCELMO BRAVO, [facility] 4 11:41:01 Hereditary hemochromatosis Active [address], [place], [address] [place] [address], [facility]. 4 13:53:41 Pain in scrotum Active 2023 Pt. with small bilateral hydrocele and small left varicocele seen on scrotal US. Mild-Moderate left sided varicocele with vascular flow demonstrated in the left testical including arterial waveform. [address], [place], [address], [facility] 4 15:18:24 Cough Active [address], [place], [address], [facility] 4 11:01:44 Varicocele Active [address], [place], [address], [facility] 4 12:27:19 Problem Notes None recorded. Procedures Surgical History Date Name Laterality Status Provider Name and Address Organization Details Recorded Time 8 Appendectomy completed ANCELMO BRAVO, [facility] 03/19/2023 16:16:55 Imaging Results None recorded. Procedure Notes None recorded. Medical Equipment None Reported. Allergies No known drug allergies Medications Name Sig Start Date Stop Date Status Note LastModified by Organization Details LastModified Time amoxicillin 875 mg-potassium clavulanate 125 mg tablet Take 1 tablet every 12 hours by oral route for 7 days. 08/03 completed Not Available Not Available Not Available Vitals Date Recorded Body height Body mass index (BMI) Body weight Body temperature Respiratory rate Oxygen saturation Oxygen saturation in Arterial blood by Pulse oximetry Heart rate Systolic blood pressure Diastolic blood pressure Provider Name and Address Organization Details Last Updated DateTime 4 172.72 cm 25.2 kg/m2 70301.6 1 g 98.9 [degF] 18 /min 97 % 97 % 113 /min 111 mm[Hg] 70 mm[Hg] Kelly Sarabia RN [facility] 13:11:43 Social History Question Answer Notes LastModified by Organizat ion Details LastModified Time Tobacco Smoking Status Never Smoker ANCELMO BRAVO, [facility] 03/23/2023 10:58:52 Would You Say That, In General, Your Health Is Good Information not available 03/23/2023 How Often Does Anyone, Including Family, Physically Hurt You? Never Information not available 03/23/2023 How Often Does Anyone, Including Family, Insult Or Talk Down To You? Never Information no t available 03/23/2023 How Often Does Anyone, Including Family, Threaten You With Harm? Never Information not available 03/23/2023 How Often Does Anyone, Including Family, Scream Or Curse At You? Never Information not available 03/23/2023 Within The Past 12 Months, You Worried That Your Food Would Run Out Before You Got Money To Buy More. Never True Information n ot available 03/23/2023 Within The Past 12 Months, The Food You Bought Just Didn't Last And You Didn't Have Money To Get More. Never True Information not available 03/23/2023 How Hard Is It For You To Pay For The Very Basics Like Food, Housing, Medical Care, And Heating? Would You Say It Is: Not Hard At All Information not available 03/23/2023 In The Past 12 Months, Has Lack Of Reliable Transportation Kept You From Medical Appointments, Meetings, Work Or From Getting Things Needed For Daily Living? No Information not available 03/23/2023 What Is Your Housing Situation Today? I Have Housing. Information not available 03/23/2023 How Often In The Past Year Have You Used Marijuana (including Smoking, Vaping, Dabbing, Or Edibles)? Never Information not available 03/23/2023 How Often In The Past Year Have You Used Prescription Medications That Were Not Prescribed To You? Never Information not available 03/23/2023 How Often In The Past Year Have You Taken Your Own Prescription Medication More Than The Way It Was Prescribed Or For Different Reasons Than Its Intended Purpose? Never Information not available 03/23/2023 How Often In The Past Year Have You Used Other Drugs (for Example, Heroin, Cocaine, Meth, Salvia, Inhalants)? Never Information not available 03/23/2023 Have You Ever Used IV Drugs? No Information not available 03/23/2023 What Was The Date Of Your Most Recent Tobacco Screening? 07/12/2023 Information n ot available 07/12/2023 Has Tobacco Cessation Counseling Been Provided? Yes Information not available 07/12/2023 On What Date Was Tobacco Cessation Counseling Provided? 07/12/2023 Information not available 07/12/2023 Do You Or Have You Ever Used Any Other Forms Of Tobacco Or Nicotine? No [email or web address] Information not available 04/21/2023 Sex: Unknown Functional Status None recorded. Mental Status None recorded. Family History Relationship Description Onset Age of this Age Resolved Age Notes Maternal Grandfather Hemochromatosis Maternal Grandfather Family history of malignant neoplasm liver cancer Maternal Grandmother Hypertensive disorder Maternal Uncle Hypertensive disorder Paternal Grandmother Rheumatoid arthritis Medical History No medical history recorded. Immunizations Vaccine Type Date Status Provider Name and Address Organization Details Recorded Time Tdap 11/27/2011 completed ANCELMO BRAVO, [facility] 03/19/2023 16:31:18 DTaP, unspecified formulation 09/18/2005 completed ANCELMO BRAVO, [facility] 03/19/2023 16:31:57 DTaP, unspecified formulation 10/12/2001 completed ANCELMO BRAVO, [facility] 03/19/2023 16:32:06 DTaP, unspecified formulation 2000 completed ANCELMO BRAVO, [facility] 03/19/2023 16:32:19 DTaP, unspecified formulation 2000 completed ANCELMO BRAVO, [facility] 03/19/2023 16:32:28 DTaP, unspecified formulation 2000 completed ANCELMO BRAVO, [facility] 03/19/2023 16:32:38 HPV, unspecified formulation 08/22/2012 ANCELMO Victoria, [facility] 03/19/2023 16:33:23 HPV, unspecified formulation 04/25/2012 completed ANCELMO BRAVO, [facility] 03/19/2023 16:33:30 HPV, unspecified formulation 02/24/2012 ANCELMO Victoria, [facility] 03/19/2023 16:33:40 Hib, unspecified formulation 10/12/2001 completed ANCELMO BRAVO, [facility] 03/19/2023 16:34:36 Hib, unspecified formulation 2000 completed DAISY SERRANO MA null, [facility] 03/19/2023 16:34:46 Hib, unspecified formulation 2000 completed DAISY SERRANO MA null, [facility] 03/19/2023 16:34:54 Hib, unspecified formulation 2000 completed ANCELMO BRAVO, [facility] 03/19/2023 16:35:16 Hep A, pediatric, unspecified formulation 02/21/2016 completed ANCELMO BRAVO, [facility] 03/19/2023 16:35:56 Hep A, pediatric, unspecified formulation 03/23/2017 completed ANCELMO BRAVO, [facility] 03/19/2023 16:36:06 Hep B, unspecified formulation 01/04/2001 completed ANCELMO BRAVO, [facility] 03/19/2023 16:36:36 Hep B, unspecified formulation 2000 completed ANCELMO BRAVO, [facility] 03/19/2023 16:36:42 Hep B, unspecified formulation 2000 completed ANCELMO BRAVO, [facility] 03/19/2023 16:36:50 influenza nasal, unspecified formulation 03/23/2015 completed DAISY SERRANO MA null, [facility] 03/19/2023 16:37:27 influenza nasal, unspecified formulation 12/06/2014 completed DAISY SERRANO MA null, [facility] 03/19/2023 16:37:33 influenza nasal, unspecified formulation 12/01/2013 completed DAISY SERRANO MA null, [facility] 03/19/2023 16:37:39 influenza nasal, unspecified formulation 11/23/2012 completed ANCELMO BRAVO, [facility] 03/19/2023 16:37:49 influenza nasal, unspecified formulation 11/26/2012 completed ANCELMO BRAVO, [facility] 03/19/2023 16:37:55 influenza nasal, unspecified formulation 11/15/2010 completed ANCELMO BRAVO, [facility] 03/19/2023 16:38:00 influenza nasal, unspecified formulation 11/01/2009 completed ANCELMO BRAVO, [facility] 03/19/2023 16:38:06 MMR 06/02/2004 completed ANCELMO BRAVO, [facility] 03/19/2023 16:38:57 MMR 04/14/2001 [facility]23 16:39:03 meningococcal MCV4P 04/19/2017 completed ANCELMO HOYOS, [facility] 03/19/2023 16:39:40 meningococcal MCV4P 02/24/2012 completed ANCELMO HOYOS, [facility] 03/19/2023 16:39:47 pneumococcal conjugate PCV 7 04/10/2002 completed ANCELMO BRAVO, [facility] 03/19/2023 16:40:21 pneumococcal conjugate PCV 7 2000 completed ANCELMO BRAVO, [facility] 03/19/2023 16:40:27 pneumococcal conjugate PCV 7 2000 completed ANCELMO BRAVO, [facility] 03/19/2023 16:40:33 pneumococcal conjugate PCV 7 2000 completed ANCELMO BRAVO, [facility] 03/19/2023 16:40:42 IPV 09/18/2005 completed ANCELMO BRAVO, [facility] 03/19/2023 16:41:07 IPV 10/12/2001 completed ANCELMO BRAVO, [facility] 03/19/2023 16:41:12 IPV 2000 completed ANCELMO BRAVO, [facility] 03/19/2023 16:41:17 IPV 2000 completed ANCELMO BRAVO, [facility] 03/19/2023 16:41:23 varicella 09/20/2006 completed ANCELMO BRAVO, [facility] 03/19/2023 16:41:46 varicella 07/14/2001 completed ANCELMO BRAVO, [facility] 03/19/2023 16:41:52 SARS-COV-2 (COVID-19) vaccine, UNSPECIFIED 07/06/2020 completed ANCELMO BRAVO, [facility] 03/23/2023 11:09:45 SARS-COV-2 (COVID-19) vaccine, UNSPECIFIED 07/30/2020 completed ANCELMO BRAVO, [facility] 03/23/2023 11:09:59 Tdap 05/14/2020 completed ANCELMO BRAVO, [facility] 03/23/2023 11:10:50 Past Encounters Encounter ID Performer Location Encounter Start Date Encounter Closed Date Diagnosis/Indication Diagnosis SNOMED-CT Code [id number] YUMIKO ISAAC [address],[facility] [address] [place] [address] 07/12/2023 12:55:54 07/12/2023 13:55:23 Acute sinusitis [id number] Health Concerns Section Related Observation LastModified by Organization Detai ls LastModified Time None Recorded Concern Status LastModified by Organization Details LastModified Time None Recorded Payers Encounter Date Sequence Insurance Name Policy Number Policy Abdul Covered Member ID Abdul Member ID Guarantor Name 07/12/2023 2 [place] [facility] [id number] Fabby Izaguirre [id number] Sacha Quiñones 07/12/2023 1 [place] [facility] [id number] Sacha Quiñones [id number] Sacha Quiñones Notes Date Note Type Note Provider Name and Address Organization Details Recorded Time 07/12/2023 text/html HPI Notes: Patie nt with onset of symptoms 6-7 days ago, with headache, sore throat, fevers up to 101, cough. Was evaluated through [facility] walk in clinic 3 days ago, negative testing for COVID, strep, and mono. Recommended continued symptomatic treatment. Has had no fevers the last 24 hours. No symptoms are improving, and feels that sore throat is worsening despite around the clock OTC pain relievers. He is having post nasal drip, and thick, purulent, blood-tinged nasal discharge. Patient has been treating symptoms with OTC Claritin QAM, ibuprofen/tylenol, and salt water gargles. Did take a few doses of OTC cough/cold medication 2-3 days ago, with minimal improvement in symptoms. Has not performed any nasal saline lavage. This is his 3rd recurrent URI in the last few months. Symptoms will last approximately 2 weeks, and then resolve. Patient denies any history of asthma or chronic lung issues. Never cigarette smoker, did vape in the past, but has not recently. YUMIKO ISAAC [address], [place], [address], [facility]. 07/12/2023 13:53:51
--- OUTSIDE RECORDS SUMMARY | 2023-09-09 12:22 | XMS_ITS | Clinical Summary ---
Author Organization [facility] Address [address] [place] [address] Care Team Providers Care Information Assurance Name Role Phone Rusty West Primary Care Provider [phone] Encounters Date Type Department Care Team Description 08/11/2023 8:34 EDT - 08/11/2023 23:59 EDT Hospital Encounter [facility]ray [address] [place] [address] Sprain of unspecified part of right wrist and hand, initial encounter Discharge Disposition: Home or Self Care 08/05/2023 Lab Requisition [facility] Pathology & Laboratory Medicine [address] [address] Outr Resulting Lab, Provider 08/05/2023 Lab Requisition [facility] Pathology & Laboratory [address] [address] Outr Resulting Lab, Provider from Last 3 Months Social History Tobacco Use Types Packs/Day Years Used Date Smoking Tobacco: Never Assessed Sex and Gender Information Value Date Recorded Sex Assigned at Not on file Gender Identity Male 08/11/2023 8:16 EDT Sexual Orientation Not on file Plan of Treatment Health Maintenance Due Date Last Done Comments Hepatitis C Screen 2000 Hepatitis B Vaccine (1 of 3 - 19+ 3-dose series) 04/08 COVID-19 Vaccine (2022- season) 2022 Procedures Procedure Name Priority Date/Time Associated Diagnosis [...] identified in the right hand or wrist. [id number] Narrative 08/11/2023 9:50 EDT XR HAND RIGHT [...] changes. Soft tissues: Unremarkable. Resulting Agency Comment [id number] Procedure Note David Pang MD - 08/11/2023 [...] identified in the right hand or wrist. [id number] Emmy West MD [facility] [place] [facility] ORDERABLES * XR HAND RIGHT 3 OR MORE VIEWS (08/11/2023 9:01 EDT) Anatomical Region Laterality Modality Upper Extremities Right Computed Radio graphy 08/11/2023 9:50 EDT Impressions 08/11/2023 9:50 EDT No fracture identified in the right hand or wrist. [id number] Narrative 08/11/2023 9:50 EDT XR HAND RIGHT [...] changes. Soft tissues: Unremarkable. Resulting Agency Comment [id number] Procedure Note David Pang MD - 08/11/2023 [...] identified in the right hand or wrist. [id number] Emmy West MD [facility] [place] [facility] ORDERABLES * SYPHILIS SEROLOGY (08/04/2023 12:58 EDT) Syphilis Serology Negative Negative 08/06/2023 13:36 EDT [facility] Blood VENOUS BLOOD / Unknown 08/04/2023 12:58 EDT 08/05/2023 17:06 EDT Provider Outr Resulting Lab IMMUNOLOGY A ND SEROLOGY ORDERABLES Performing Organization Address [facility] Co de Phone Number [facility] [address] [place], [place] [address] * HIV 1/2 ANTIGEN AND ANTIBODY, 4TH GENERATION (08/04/2023 12:58 EDT) [facility] HIV 1 and 2 Antibody/p24 Antigen, 4th Generation Negative Negative 08/05/2023 18:51 EDT [facility] Comment:If acute HIV-1 infec tion is suspected in a high risk patient, submit plasma specimen for HIV-1 RNA quantitation test. Blood VENOUS BLOOD / Unknown 08/04/2023 12:58 EDT 08/05/2023 17:06 EDT Narrative [facility] - 08/05/2023 18:51 EDT Fourth Generation assay performed on the Siemens Centaur XPT. Provider Outr Resulting Lab IMMUNOLOGY A ND SEROLOGY ORDERABLES Performing Organization Address City/[facility]/ZIP Co de Phone Number [facility] [address] [place], [place] [address] from Last 3 Months Sacha Quiñones Personal/Family Self [address] [place] [address] Sacha Quiñones Personal/Family Self [address] [place] [address] Sacha Quiñones Personal/Family Self [address] [place] [address] Sacha Quiñones Personal/Family Self [address] [place] [address] Care Teams Information Assurance Relationship Specialty Start Date End Date Rusty West [address] [place] [address] PCP - General Internal Medicine - Primary Care 08/11/23
--- OUTSIDE RECORDS SUMMARY | 2023-09-09 12:22 | XMS_ITS | Encounter Summary ---
Author Organization [facility] Address [address] [place] [address] Care Team Providers Care Fluorescent Lighting Model Maker Name Role Phone Rusty West Primary Care Provider [phone] Encounter Details Date Type Department Care Team (Late st Contact Info) Description 03/26/2023 Lab Requisition [facility] Pathology & Laboratory Medicine - [facility] [address] [place], [place] [address] Outr Resulting Lab, Provider Social History Tobacco [...] Procedure Name Priority Date/Time Associated Diagnosis Comments CCP ANTIBODIES Routine 03/23/2023 12:11 EST RHEUMATOID FACTOR Routine 03/23/2023 12: 11 EST documented in this encounter Results * RHEUMATOID FACTOR (03/23/2023 12:11 EST) Rheumatoid Factor <8.6 <12.0 IU/mL 03/26/2023 19:11 EST [facility] Blood VENOUS BLOOD / Unknown 03/23/2023 12:11 EST 03/26/2023 16:33 EST Provider Outr Resulting Lab CHEMISTRY & BLOOD GAS ORDERABLES [facility] [address] [place] [address] * CCP ANTIBODIES (03/23/2023 12:11 EST) CCP Antibodies <2.5 <5.0 U/mL 03/29/2023 10:50 EST [facility] Blood VENOUS BLOOD / Unknown 03/23/2023 12:11 EST 03/26/2023 16:33 EST Provider Outr Resulting Lab IMMUNOLOGY A ND SEROLOGY ORDERABLES Performing Organization Address City/[facility] Co de Phone Number [facility] [address] [place] [address] documented in this encounter Visit Diagnoses Not on filedocumented in this encounter Care Teams Fluorescent Lighting Model Maker Relationship Specialty Start Date End Date Rusty [place] [address] PCP - General Internal Medicine - Primary Care 08/11/23 documented as of this encounter
--- OUTSIDE RECORDS SUMMARY | 2023-09-09 12:22 | XMS_ITS | Encounter Summary ---
Author Organization [facility] Address [address] [place] [address] Care Team Providers Care Research Staff Member Name Role Phone Rusty West Primary Care Provider [phone] Reason for Referral * Radiology Services (STAT) - Authorization Not Required Specialty Diagnoses / Procedures Referred By Contac t Referred To Contact Diagnoses Sprain of unspecified part of right wrist and hand, initial encounter Procedures XR HAND RIGHT 3 OR MORE VIEWS Emmy West MD [address] [place] [address] [facility] Referral ID Status Reason Start Date Expiration Date Visits Requested Visits Authorized [id number] Authorization Not Required 08/10/2023 1 1 * Radiology Services (STAT) - Authorization Not Required Specialty Diagnoses / Procedures Referred By Contac t Referred To Contact Diagnoses Sprain of unspecified part of right wrist and hand, initial encounter Procedures XR WRIST RIGHT 3 OR MORE VIEWS Emmy West MD [address] [place] [address] [facility] Referral ID Status Reason Start Date Expiration Date Visits Requested Visits Authorized [id number] Authorization Not Required 08/10/2023 1 1 Reason for Visit * Radiology Services (STAT) - Authorization Not Required Specialty Diagnoses / Procedures Referred By Contac t Referred To Contact Diagnoses Sprain of unspecified part of right wrist and hand, initial encounter Procedures XR WRIST RIGHT 3 OR MORE VIEWS Emmy West MD [address] [place] [address] [facility] Referral ID Status Reason Start Date Expiration Date Visits Requested Visits Authorized [id number] Authorization Not Required 08/10/2023 1 1 Encounter Details Date Type Department Care Team (Latest Contact Info) Description 08/11/2023 8:34 EDT - 08/11/2023 23:59 EDT Hospital Encounter [facility] Xray [address], [place] [id number] Sprain of unspecified part of right wrist and hand, initial encounter Discharge Disposition: Home or Self Care Social History Tobacco Use Types Packs/Day Years Used Date Smoking Tobacco: Never Assessed Sex and Gender Information Value Date Recorded Sex Assigned at Not on file Gender Identity Male 08/11/2023 8:16 EDT Sexual Orientation Not on file documented as of this encounter Discharge Disposition Disposition Code Departure Means Destination Home or Self Care documented in this encounter Plan of Treatment Not on file documented as of this encounter Procedures Procedure Name Priority Date/Time Associated Diagnosis Comments XR WRIST RIGHT 3 OR MORE VIEWS STAT 08/11/2023 9:01 EDT Sprain of unspecified part of right wrist and hand, initial encounter XR HAND RIGHT 3 OR MORE VIEWS STAT 08/11/2023 9:01 EDT Sprain of unspecified part of right wrist and hand, initial encounter documented in this encounter Results * XR HAND RIGHT 3 OR MORE VIEWS (08/11/2023 9:01 EDT) Anatomical Region Laterality Modality Upper Extremities Right Computed Radio graphy 08/11/2023 9:50 EDT Impressions 08/11/2023 9:50 EDT No fracture identified in the right hand or wrist. [id number] Narrative 08/11/2023 9:50 EDT XR HAND RIGHT [...] changes. Soft tissues: Unremarkable. Resulting Agency Comment [id number] Procedure Note David Pang MD - 08/11/2023 [...] identified in the right hand or wrist. [id number] Emmy West MD IMG DIAGNOSTIC IMAGING ORDERABLES * XR WRIST RIGHT 3 OR MORE VIEWS (08/11/2023 9:01 EDT) Anatomical Region Laterality Modality Upper Extremities Right Computed Radio graphy 08/11/2023 9:50 EDT Impressions 08/11/2023 9:50 EDT No fracture identified in the right hand or wrist. [id number] Narrative 08/11/2023 9:50 EDT XR HAND RIGHT [...] changes. Soft tissues: Unremarkable. Resulting Agency Comment [id number] Procedure Note David Pang MD - 08/11/2023 [...] identified in the right hand or wrist. [id number] Emmy West MD IMG DIAGNOSTIC IMAGING ORDERABLES documented in this encounter Visit Diagnoses Diagnosis Sprain of unspecified part of right wrist and hand, initial encounter documented in this encounter Care Teams Research Staff Member Relationship Specialty Start Date End Date Rusty [place] [address] PCP - General Internal Medicine - Primary Care 08/11/23 documented as of this encounter
--- OUTSIDE RECORDS SUMMARY | 2023-09-09 12:22 | XMS_ITS | Data Portability ---
Author Organization [facility], [facility] Address [place] [place] [address] Assessment Encounter Date Assessment Date Assessment LastModified by Organization Details LastModified Time 08/04/2023 08/04/2023 The total time devoted to today's encounter, including both the ddir-cl-bzpf time with the patient and/or family/caregi art and znb-hokm-mz-f manjinder time I personally spent is 40 minutes. [email or web address] Not available 08/05/2023 10:50:45 Plan of Treatment Reminders Order Date Submit Date Provider Last Modified By Organization Details Last Modified Time Details Appointments Annual Wellness Exam 40 2024 01:00P Leonel West Not available Not available Not available Lab hemochrom atosis mutation (hfe), blood/tis scooter - 1 SST 2023 024 [facility] (Registration ), [address] [place] [address] [place], [id number], 04/29/2023 10:38:53 semen analysis [address] [facility] ([facility]), [address] [place] [address] [place], [address], 09/09/2023 09:58:35 RPR (rapid plasma reagin), serum 2023 024 [email or web address] (Registration ), [address] [place] [address] [place], [address], 08/18/2023 09:12:29 CT + NG DNA, PCR, urine [address] [facility] ([facility]), [address] [place] [address] [place], [address], 09/09/2023 09:58:47 HIV (1+2) Ab screen, serum - 1 SST, 1 [place] [address] [facility] ([facility]), [address] [place] [address] [place], [address], 08/18/2023 09:12:29 Referral None recorded. Procedures None recorded. Surgeries None recorded. Imaging None recorded. Medication Orders amoxicill in 875 mg-potass ium clavulana te 125 mg tablet 2023 024 [facility], [address] [place], [address], 08/04/2023 11:40:31 Patient TargetsNo targets recorded. Patient Instructions Encounter Date Encounter Id Patient Instructions Last Modified By Organization Details Last Modified Time 04/21/2023 [id number] If allergy flare up occurs, rec'd Claratin as your mom does, or you could trial Nasonex (aka mometasone) but be careful with nasal inhalation of steroids as they thin tissue so if any irritation, decrease frequency and amount of use. For Hereditary Hemochromatosis: Rec'd to maintain healthy body weight, remain active and avoid development of diabetes, and avoid alcohol excess to any degree to avoid development of NAFLD or cirrrhosis as in those cases, pt. with increased likelihood of developing iron overload. Diet: Lots of colorful veggies. Try to integrate a portion of your protein from vegetable sources. Aim for 1/2 your plate being veggies. Try to get 2-3 servings of fruit daily. Not available 04/21/2023 09:13:30 07/12/2023 [id number] Acute Sinusitis: Care Instructions [email or web address] Not available 07/12/2023 13:43:02 saline nasal washes: care instructions Not available 07/12/2023 13:43:02 Reason for Referral None Reported. Results Created Date Observation Date Name Description Value Unit Range Abnormal Flag LastModifiedBy Organization Detail LastModifiedTime 03/23/19 24 03/29/2023 CYCLI C CITRU LLINA PREETHI PEPTI DE cyclic citrullinate d peptide <2.5 U/mL <5.0 Not Available [address] [place], [address] 03/29/2023 15:01:47 03/23/19 24 03/26/2023 RHEUM ATOID FACTO R rheumatoid factor <8.6 IU/mL <12.0 Not Available [address] [place], [address] 03/29/2023 15:01:47 03/25/19 24 03/30/2023 HERED ITARY HEMOC HROMA TOSIS result summary SEE BELOW Not Available [address] [place], [address] 03/30/2023 15:28:11 03/25/19 24 03/30/2023 HERED ITARY HEMOC HROMA TOSIS result See Commen t Not Available [address] [place], [address] 03/30/2023 15:28:11 03/25/19 24 03/30/2023 HERED ITARY HEMOC HROMA TOSIS interpretati on See Commen t Not Available [address] [place], [address] 03/30/2023 15:28:11 03/25/19 24 03/30/2023 HERED ITARY HEMOC HROMA TOSIS specimen WB Whole Blood Not Available [address] [place], [address] 03/30/2023 15:28:11 03/25/19 24 03/30/2023 HERED ITARY HEMOC HROMA TOSIS method See Commen t Not Available [address] [place], [address] 03/30/2023 15:28:11 03/25/19 24 03/30/2023 HERED ITARY HEMOC HROMA TOSIS released by See Commen t Not Available [address] [place], [address] 03/30/2023 15:28:11 04/12/19 24 04/14/2023 STREP A CULTU RE strep A culture Not Available [address] [place], [address] 04/14/2023 08:47:30 04/12/19 24 04/14/2023 HERPE S SIMPL EX VIRUS PCR hsv 1 DNA result Negati ve negati ve Not Available [address] [place], [address] 04/14/2023 16:33:35 04/12/19 24 04/14/2023 HERPE S SIMPL EX VIRUS PCR hsv 2 DNA result Negati ve negati ve Not Available [address] [place], [address] 04/14/2023 16:33:35 04/12/19 24 04/14/2023 CHLAM YDIA/ GC AMPLI FIED RNA chlamydia result Negati ve negati ve Not Available [address] [place], [address] 04/14/2023 16:33:36 04/12/19 24 04/14/2023 CHLAM YDIA/ GC AMPLI FIED RNA GC result Negati ve negati ve Not Available [address] [place], [address] 04/14/2023 16:33:36 04/15/19 24 04/15/2023 COMPL ETE BLOOD COUNT NO DIFF WBC 6.71 10_3/ uL 4.4-10 .8 normal Not Available [address] [place], [address] 04/15/2023 16:54:04 04/15/19 24 04/15/2023 COMPL ETE BLOOD COUNT NO DIFF RBC 4.85 10_6/ uL 4.36-5 .78 normal Not Available [address] [place], [address] 04/15/2023 16:54:04 04/15/19 24 04/15/2023 COMPL ETE BLOOD COUNT NO DIFF HGB 15.8 g/dL 13.5-1 7.5 normal Not Available [address] [place], [address] 04/15/2023 16:54:04 04/15/19 24 04/15/2023 COMPL ETE BLOOD COUNT NO DIFF HCT 44.3 % 40.0-5 0.0 normal Not Available [address] [place], [address] 04/15/2023 16:54:04 04/15/19 24 04/15/2023 COMPL ETE BLOOD COUNT NO DIFF MCV 91 fL 80-95 normal Not Available Elayne martin [address] [place], [address] 04/15/2023 16:54:04 04/15/19 24 04/15/2023 COMPL ETE BLOOD COUNT NO DIFF MCH 32.6 pg 27.0-3 3.0 normal Not Available [address] [place], [address] 04/15/2023 16:54:04 04/15/19 24 04/15/2023 COMPL ETE BLOOD COUNT NO DIFF MCHC 35.7 % 32.0-3 6.0 normal Not Available [address] [place], [address] 04/15/2023 16:54:04 04/15/19 24 04/15/2023 COMPL ETE BLOOD COUNT NO DIFF RDW 11.9 % 11.8-1 4.1 normal Not Available [address] [place], [address] 04/15/2023 16:54:04 04/15/19 24 04/15/2023 COMPL ETE BLOOD COUNT NO DIFF platelet count 241 10_3/ uL 130-40 0 normal Not Available [address] [place], [address] 04/15/2023 16:54:04 04/15/19 24 04/15/2023 COMPL ETE BLOOD COUNT NO DIFF MPV 9.5 fL 8.0-11 .0 normal Not Available [address] [place], [address] 04/15/2023 16:54:04 04/15/19 24 04/15/2023 IRON/ IBCT iron 101 ug/dL 65-175 normal Not Available [address] [place], [address] 04/15/2023 17:44:08 04/15/19 24 04/15/2023 IRON/ IBCT total iron binding capacity 321 ug/dL 250-45 0 normal Not Available [address] [place], [address] 04/15/2023 17:44:08 04/15/19 24 04/15/2023 IRON/ IBCT transferrin sat 31 % 20-55 normal Not Available [address] [place], [address] 04/15/2023 17:44:08 04/15/19 24 04/15/2023 JI TIN ferritin 99 NG/mL 26-388 normal Not Available [address] [place], [address] 04/15/2023 17:57:10 04/15/19 24 04/20/2023 TRANS JI N transferrin 257 mg/dL 201-35 2 Not Available [address] [place], [address] 04/20/2023 14:19:44 04/26/19 24 04/26/2023 URINA LYSIS color Yellow yellow Not Available [address] [place], [address] 04/26/2023 21:12:46 04/26/19 24 04/26/2023 URINA LYSIS clarity Clear clear Not Available [address] [place], [address] 04/26/2023 21:12:46 04/26/19 24 04/26/2023 URINA LYSIS specific gravity 1.020 1.005- 1.025 normal Not Available [address] [place], [address] 04/26/2023 21:12:46 04/26/19 24 04/26/2023 URINA LYSIS pH 6.5 5-8 normal Not Available [address] [place], [address] 04/26/2023 21:12:46 04/26/19 24 04/26/2023 URINA LYSIS leukocyte esterase Negati ve negati ve Not Available [address] [place], [address] 04/26/2023 21:12:46 04/26/19 24 04/26/2023 URINA LYSIS nitrite Negati ve negati ve Not Available [address] [place], [address] 04/26/2023 21:12:46 04/26/19 24 04/26/2023 URINA LYSIS protein Negati ve mg/dL neg-tr manjinder Not Available [address] [place], [address] 04/26/2023 21:12:46 04/26/19 24 04/26/2023 URINA LYSIS glucose Negati ve mg/dL negati ve Not Available [address] [place], [address] 04/26/2023 21:12:46 04/26/19 24 04/26/2023 URINA LYSIS ketones Negati ve mg/dL negati ve Not Available [address] [place], [address] 04/26/2023 21:12:46 04/26/19 24 04/26/2023 URINA LYSIS urobilinogen 0.2 mg/dL up to 0.2 Not Available [address] [place], [address] 04/26/2023 21:12:46 04/26/19 24 04/26/2023 URINA LYSIS bilirubin Negati ve negati ve Not Available [address] [place], [address] 04/26/2023 21:12:46 04/26/19 24 04/26/2023 URINA LYSIS blood Negati ve negati ve Not Available [address] [place], [address] 04/26/2023 21:12:46 08/04/19 24 08/05/2023 HIV-1 /2 AG AB SCREE N HIV-1/2 Ag Ab screen Negati ve negati ve Not Available [address] [place], [address] 08/06/2023 08:16:53 08/04/19 24 08/06/2023 SYPHI LIS SEROL OGY (RPR) syphilis serology (RPR) Negati ve negati ve Not Available [facility] [address] [place], [address] 08/06/2023 16:41:14 04/27/19 24 04/27/2023 ultra sound imagi ng repor t Patien t Name: Sacha Quiñones Unit #: [id number] Loc: DI Orderi ng Provid er: Jose Clements M.D. Accoun t #: [id number] Status : REG CLI Primar y Care Provid er: Ila West Date of Exam: 04/08 11/01 Sex: M Admiss ion Date: : 2000 Age: 23 Exam(s ) US SCROTU M EXAM: US [...] left varico nidia noted DATA REPOSI TORY: Amarilis Feliz d By: Jose Clements M.D. CC: ------ ------ ------ ------ ------ ------ ------ ------ ------ ------ ------ ------ - Dictat ed By: Rob Arita M.D. [id number] 145 Transc ribed By: Lyla PALAFOX,Alex wilcox 145 This is privil eged, confid ential inform ation intend ed only for the provid er named. Any use or distri bution by any person other than this provid er is strict ly prohib ited. If you receiv e this report in error, please notify us immedi adamly at and return the origin al report to us at the addres s above. Thank- you. [facility] [address], [place], [address] 04/27/2023 15:18:38 08/13/19 24 04/27/2023 ultra sound imagi ng repor t Patijen t Name: Sacha Quiñones Unit #: [id number] Loc: DI Orderi ng Provid er: Jose Clements M.D. Accoun t #: [id number] Status : REG CLI Primar y Care Provid er: Ila West samanta Date of Exam: 04/08 11/01 Sex: M Admiss ion Date: : 2000 Age: 23 Addend a: Exam(s ) US SCROTU M ADDEND UM: The images were review ed. I agree with the yana dennis and jim niharika below. Dictat ed By: Sam Ellington 509 Sam Ellington 1509 Transc ribed By: Zoya Cao [id number] Exam(s ) US SCROTU M EXAM: US [...] this report in error, please notify us immjustin tijerina at [phone] and return the origin al report to us at the addres s above. Thank- you. [email or web address] [facility] [address] , [place], [address] 08/16/2023 14:23:04 Result Notes None recorded. Problems Name Status Onset Date Resolution Date Notes Provider Name and Address Organization Details Recorded Time Prepatellar bursitis of left knee Active 2017 ANCELMO BRAVO, [facility], [facility]. 4 16:16:00 Pharyngitis Active 2018 ANCELMO BRAVO, [facility], [facility]. 4 16:20:43 Erectile dysfunction due to psychophysiologic disorder Active 2023 ANCELMO BRAVO, [facility], [facility]. 4 11:41:01 Hereditary hemochromatosis Active [address], [place], [address], [facility], [facility]. 4 13:53:41 Pain in scrotum Active 2023 Pt. with small bilateral hydrocele and small left varicocele seen on scrotal US. Mild-Moderate left sided varicocele with vascular flow demonstrated in the left testical including arterial waveform. [address], [place], [address], [facility], [facility]. 4 15:18:24 Cough Active [address], [place], [address], [facility], [facility]. 4 11:01:44 Varicocele Active [address], [place], [address] [place] [address] 12:27:19 Problem Notes None recorded. Procedures Surgical History Date Name Laterality Status Provider Name and Address Organization Details Recorded Time Appendectomy completed ANCELMO BRAVO, [facility] 03/19/2023 16:16:55 Imaging Results Imaging Date Name Status LastModified by Organiz ation Details LastModified Time 04/27/2023 ultrasound imaging report completed [email or web address] [address] [place], [address] 04/27/2023 15:18:38 04/27/2023 ultrasound imaging report completed [address] [facility] [place], [address] 08/16/2023 14:23:04 Procedure Notes None recorded. Medical Equipment None [...] mass index (BMI) Body weight Body temperature Oxygen saturation Oxygen saturation in Arterial blood by Pulse oximetry Heart rate Respiratory rate Provider Name and Address Organization Details Last Updated DateTime 4 174.62 cm 24.5 kg/m2 89582.0 2 g 98.6 [degF] 99 % 99 % 90 /min 16 /min DAISY SERRANO MA [facility] 4 10:58:10 Date Recorded Body height Body mass index (BMI) Body weight Body temperature Heart rate Systolic blood pressure Diastolic blood pressure Provider Name and Address Organization Details Last Updated DateTime 4 172.72 cm 25.2 kg/m2 47916.6 1 g 97.7 [degF] 76 /min 112 mm[Hg] 62 mm[Hg] Skylar Cole RN [facility] 4 08:01:51 Date Recorded Body height Body mass index (BMI) Body weight Body temperature Respiratory rate Oxygen saturation Oxygen saturation in Arterial blood by Pulse oximetry Heart rate Systolic blood pressure Diastolic blood pressure Provider Name and Address Organization Details Last Updated DateTime 4 172.72 cm 25.2 kg/m2 51283.6 1 g 98.9 [degF] 18 /min 97 % 97 % 113 /min 111 mm[Hg] 70 mm[Hg] Kelly Sarabia RN [facility] 13:11:43 Date Recorded Body height Body mass index (BMI) Body weight Body temperature Oxygen saturation Oxygen saturation in Arterial blood by Pulse oximetry Heart rate Systolic blood pressure Diastolic blood pressure Provider Name and Address Organization Details Last Updated DateTime 4 172.72 cm 24.1 kg/m2 60045.4 7 g 98.6 [degF] 99 % 99 % 82 /min 122 mm[Hg] 76 mm[Hg] DAISY SERRANO MA [facility] 4 11:40:18 Social History Question Answer Notes LastModified by Organizat ion Details LastModified Time Tobacco Smoking Status Never Smoker DAISY SERRANO MA null, [facility] 03/23/2023 10:58:52 Would You Say [...] Details Recorded Time Tdap 11/27/2011 completed ANCELMO BRAVO [place] [facility] 03/19/2023 16:31:18 DTaP, unspecified formulation 09/18/2005 completed DAISY SERRANO MA null, [facility] 03/19/2023 16:31:57 DTaP, unspecified formulation 10/12/2001 completed DAISY SERRANO MA null, [facility] 03/19/2023 16:32:06 DTaP, unspecified formulation 2000 completed DAISY SERRANO MA null, [facility] 03/19/2023 16:32:19 DTaP, unspecified formulation 2000 completed DAISY SERRANO MA null, [facility] 03/19/2023 16:32:28 DTaP, unspecified formulation 2000 completed DAISY SERRANO MA null, [facility] 03/19/2023 16:32:38 HPV, unspecified formulation 08/22/2012 completed DAISY SERRANO MA null, [facility] 03/19/2023 16:33:23 HPV, unspecified formulation 04/25/2012 completed DAISY SERRANO MA null, [facility] 03/19/2023 16:33:30 HPV, unspecified formulation 02/24/2012 completed DAISY SERRANO MA null, [facility] 03/19/2023 16:33:40 Hib, unspecified formulation 10/12/2001 completed DAISY SERRANO MA null, [facility] 03/19/2023 16:34:36 Hib, unspecified formulation 2000 completed DAISY SERRANO MA null, [facility] 03/19/2023 16:34:46 Hib, unspecified formulation 2000 completed DAISY SERRANO MA null, [facility] 03/19/2023 16:34:54 Hib, unspecified formulation 2000 completed DAISY SERRANO MA null, [facility] 03/19/2023 16:35:16 Hep A, pediatric, unspecified formulation 02/21/2016 completed ANCELMO BRAVO, [facility]. 03/19/2023 16:35:56 Hep A, pediatric, unspecified formulation 03/23/2017 completed ANCELMO BRAVO, [facility] 03/19/2023 16:36:06 Hep B, unspecified formulation 01/04/2001 completed ANCELMO BRAVO, [facility] 03/19/2023 16:36:36 Hep B, unspecified formulation 2000 completed ANCELMO BRAVO, [facility] 03/19/2023 16:36:42 Hep B, unspecified formulation 2000 completed ANCELMO BRAVO, [facility] 03/19/2023 16:36:50 influenza nasal, unspecified formulation 03/23/2015 completed ANCELMO BRAVO, [facility] 03/19/2023 16:37:27 influenza nasal, unspecified formulation 12/06/2014 completed ANCELMO BRAVO, [facility] 03/19/2023 16:37:33 influenza nasal, unspecified formulation 12/01/2013 completed ANCELMO BRAVO, [facility] 03/19/2023 16:37:39 influenza nasal, unspecified formulation 11/23/2012 completed ANCELMO BRAVO, [facility] 03/19/2023 16:37:49 influenza nasal, unspecified formulation 11/26/2012 completed DAISY SERRANO MA null, [facility]. 03/19/2023 16:37:55 influenza nasal, unspecified formulation 11/15/2010 completed DAISY SERRANO MA null, [facility]. 03/19/2023 16:38:00 influenza nasal, unspecified formulation 11/01/2009 completed DAISY SERRANO MA null, [facility]. 03/19/2023 16:38:06 MMR 06/02/2004 completed ANCELMO BRAVO, [facility]. 03/19/2023 16:38:57 MMR 04/14/2001 completed ANCELMO BRAVO, [facility] 03/19/2023 16:39:03 meningococcal MCV4P 04/19/2017 completed ANCELMO HOYOS, [facility] 03/19/2023 16:39:40 meningococcal MCV4P 02/24/2012 completed ANCELMO HOYOS, [facility] 03/19/2023 16:39:47 pneumococcal conjugate PCV 7 04/10/2002 completed ANCELMO BRAVO, [facility] 03/19/2023 16:40:21 pneumococcal conjugate PCV 7 2000 completed ANCELMO BRAVO, [facility] 03/19/2023 16:40:27 [facility] 7 [facility] 16:40:33 pneumococcal conjugate PCV 7 2000 completed ANCELMO BRAVO, [facility] 03/19/2023 16:40:42 IPV 09/18/2005 completed ANCELMO BRAVO, [facility] 03/19/2023 16:41:07 IPV 10/12/2001 completed ANCELMO BRAVO, [facility] 03/19/2023 16:41:12 IPV 2000 completed ANCELMO BRAVO, [facility] 03/19/2023 16:41:17 IPV 2000 completed ANCELMO BRAVO, [facility] 03/19/2023 16:41:23 varicella 09/20/2006 completed ANCELMO BRAVO, [facility] 03/19/2023 16:41:46 varicella 07/14/2001 completed ANCELMO BRAVO, [facility] 03/19/2023 16:41:52 SARS-COV-2 (COVID-19) vaccine, UNSPECIFIED 07/06/2020 completed ANCELMO BRAVO, [facility] 03/23/2023 11:09:45 SARS-COV-2 (COVID-19) vaccine, UNSPECIFIED 07/30/2020 completed ANCELMO BRAVO, [facility] 03/23/2023 11:09:59 Tdap 05/14/2020 completed ANCELMO BRAVO, [facility] 03/23/2023 11:10:50 Past Encounters Encounter ID Performer Location Encounter Start Date Encounter Closed Date Diagnosis/Indication Diagnosis SNOMED-CT Code [id number] JENNIE PELAYO [facility] [place] [address] 03/23/2023 10:48:11 03/23/2023 12:13:23 Family history of hemochromatosis 869860981 Erectile d ysfunction due to psychophysiologic disorder 060158819 [id number] JENNIE PELAYO [facility] [place] [address] 04/21/2023 07:53:49 04/21/2023 09:21:47 Adult health examination 033281661 Hereditary hemochromatosis 70638897 Influenza vaccination declined 243939955 SARS-CoV-2 mRNA vaccine declined 2413908370 [id number] SHAKIRA CRUZ [employer] [address] [place] [address] 07/12/2023 12:55:54 07/12/2023 13:55:23 Acute sinusitis 22833556 [id number] JENNIE PELAYO [facility] [address] [place] [address] 08/04/2023 11:30:09 08/04/2023 13:00:07 Pain in scrotum 39980056 Erectile d ysfunction due to psychophysiologic disorder 649402679 Varicocele 45096539 Venereal d isease screening 802620856 HIV screening 328297417 Health Concerns Section Related Observation LastModified by Organization Detai ls LastModified Time None Recorded Concern Status LastModified by Organization Details LastModified Time None Recorded Advance Directives Directive None Recorded Payers Encounter Date Sequence Insurance Name Policy Number Policy Abdul Covered Member ID Abdul Member ID Guarantor Name 03/23/2023 2 [place] [employer] [id number] Fabby Izaguirre [id number] Sacha Diaz Ishmael 03/23/2023 1 [place] [id number] Sacha Quiñones [id number] Sacha Quiñones 04/21/2023 2 [place] [id number] Fabby Izaguirre [id number] Sacha Joe Ishmael 04/21/2023 1 [place] [id number] Sacha Quiñones [id number] Ascha Joe Ishmael 07/12/2023 2 [place] [id number] Fabby Izaguirre [id number] Sacha Joe Ishmael 07/12/2023 1 [place] [id number] Sacha Hallmanel [id number] Sacha Joe Ishmael 08/04/2023 2 [place] [id number] Fabby Izaguirre [id number] Sacha Joe Ishmael 08/04/2023 1 [place] [id number] Sacha Joe Ishmael [id number] Sacha Quiñones Notes Date Note Type Note Provider Name and Address Organization Details Recorded Time 03/23/2023 text/html HPI Notes: Pt. 2 2-M, here to establish care. 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 Pt. reports work is good. He enjoys it, but there can be tough stretches with 18-20-hour days with storms. Pt. has no particular health concerns today. Pt. living alone in [place]. Pt. reports no fevers, nightssweats, unexplained weight loss. He denies any relationship or children. Pt. reports he hasn't been dating for a while. Pt. denies needs for STI testing. ED: Pt. reports he has been having some instances with maintaining erection. Reports sometimes he feels unnecessarily winded, but he also reports he will be at the gym and will run a mile in 8 minutes. Left Knee: History of left patellar accident, this causes his left knee cap to be pointy. He isn't sure if he fx. or not. JENNIE PELAYO [address], [place], [address], [facility]. 03/23/2023 12:51:00 04/21/2023 text/html HPI Notes: Pt, 2 3-M, here for physical exam. His past medical history is remarkable for hereditary hemachromatosis. HH: heterozygous type with low penetration for iron overload at 0.5-2.0% usually result of comorbidities. Constitutional: Pt. denies fevers, chills, night sweats, and unexplained headaches. Ears: Pt. denies ear pain, discharge, loss of hearing. Eyes: Pt. denies any eye pain, flashers, floaters, loss of vision, double vision. Nose: Pt. denies any stuffiness, nasal obstructions, runny nose, REPORTS HISTORY OF MILD SEASONAL ALLERGIES. HAS TRIED CLARATIN IN THE PAST IT WORKS FOR HIS MOTHER. Mouth: Pt. denies any mouth sores, dental complaints, dry mouth. GI: Pt. denies dysphagia, dark or tarry stools, pencil thin stools, excessive gas or bloating, diarrhea or constipation. Pulmonary: Pt. denies any shortness of breath, cough, wheezing. Cardiac: Pt. denies any chest pain, lightheadedness, SOB disproportionate to activity. : Pt. denies any urinary dysfunction, difficulty starting or stopping, blood in urine or semen. MSK: Pt. denies any MSK complaints. Skin: Pt. denies any skin complaints, cuts that won't heal, moles that are changing. Neuro: Pt. denies any lapses in memory or transient losses of any body function. Pt. reports no issue with balance. Endocrine: Pt. denies frequent urination, excessive hot or cold intolerance, or change in appetite or thirst drive. Hematologic: Pt. denies any easy bruising. Pt. denies history of anemia. Pt. denies any bleeding with tooth brushing. Family Hx: No fam. hx. of colon cancer, nor prostate cancer. JENNIE PELAYO [address], [place], [id number], [facility]. 04/21/2023 12:46:47 07/12/2023 text/html HPI Notes: Patie nt with onset of symptoms 6-7 days ago, with headache, sore throat, fevers up to 101, cough. Was evaluated through [facility] walk in clinic 3 days [...] not recently. YUMIKO ISAAC [address], [place], [address], [facility], [facility]. 07/12/2023 13:53:51 08/04/2023 text/html HPI Notes: Pt, [age]-M, here for follow up of multple issues including multiple respiratory illnesses over this past spring and also L-side varicocele/hydrocele related testicular pain. Left Varicocele: Reports very much improved, but some dull ache still felt on some days. Pt. with recurrent thoughts he will not be able to have children in setting of friend as described below in Anxiety. Pt. denies any testicular lumbs, bumps, blood in semen or urine. Anxiety: Pt. reports that he has a friend, 26, who just had surgery to try to correct L. side spermatocele. He reports he is a bit stressed about this. 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 Pt. had never had issue with ED in the prior major relationship.He no longer sees the woman he briefly dated he did have the ED issue with. He has a new, 3-month long at this time, woman he is dating, whom he adores, that he has had a few instances of the ED with, but most of the time there isn't an issue. Pt. gets worried leading up to romantic encounters that he will not be able to get or sustain an erection. JENNIE PELAYO [address], [place], [phone], [facility]. 08/05/2023 10:51:29
--- OUTSIDE RECORDS SUMMARY | 2023-09-09 12:22 | XMS_ITS | Encounter Summary ---
Author Organization [facility] Address [address] [place] [address] Care Team Providers Care Lunchroom Monitor Name Role Phone Rusty West Primary Care Provider [phone] Encounter Details Date Type Department Care Team (Late st Contact Info) Description 04/13/2023 Lab Requisition [facility] Pathology & Laboratory Medicine - [facility] [address], [place] [id number] Outr Resulting Lab, Provider Social History Tobacco [...] Procedure Name Priority Date/Time Associated Diagnosis Comments CHLAMYDIA/N. GONORRHOEAE AMPLIFIED NUCLEIC ACID Routine 04/12/2023 19:00 EST documented in this encounter Results * CHLAMYDIA/N. GONORRHOEAE AMPLIFIED RNA (04/12/2023 19:00 EST) Neisseria gonorrhoeae Result Negative Negative 04/14/2023 14:47 EST [facility] Chlamydia trachomatis Result Negative Negative 04/14/2023 14:47 EST [facility] Swab ORAL / Unknown 04/12/2023 19 :00 EST 04/13/2023 17:46 EST Provider Outr Resulting Lab MICROBIOLOGY - GENERAL ORDERABLES [facility] [address] [place], [place] [id number] documented in this encounter Visit Diagnoses Not on filedocumented in this encounter Care Teams Lunchroom Monitor Relationship Specialty Start Date End Date Rusty West [address] [place] [id number] PCP - General Internal Medicine - Primary Care 08/11/23 documented as of this encounter
[2023-09-10 10:38] LABS: Chlamydia Result Negative (Negative); GC Result Negative (Negative)
[2023-09-13 14:17] LABS: Acrosom Defect 20.5 %; Appearance Normal; Container Type 50 mL Conical; Motile/Ejaculate 51.7 x10(6) (>=9.0); Motile/mL 9.4 x10(6) (>=6.0); Motility 42 % (>=40); Semen Volume 5.5 mL (>=1.5); Sperm/mL 22.3 x10(6) (>=15.0); Strict Morph NL 4.5 % (>=4.0); Study Type Semen
== END 2023-09-09 12:17 | disposition home or self-care (01) ==
LOC: NCHCN 12:16
PROVIDERS: PCP Student in an Organized Health Care Education/Training Program; Visit Provider Student in an Organized Health Care Education/Training Program
DX: I86.1 Scrotal varices (principal); Z11.3 Encounter for screening for infections with a predominantly sexual mode of transmission; Z31.41 Encounter for fertility testing
CPT/HCPCS: 87491; 87591; 89240; 89310

== ENCOUNTER 2024-10-10 15:21 | Outpatient (CLI) | payer BC, SELFPAY ==
--- NOTE | 2024-10-10 14:00 | DI.RAD_ITS ---
Exam(s) XR SHOULDER LT COMPLETE 2+V EXAM: XR SHOULDER LT COMPLETE 2+V CLINICAL HISTORY: LEFT SHOULDER PAIN. TECHNIQUE: 2D digital imaging was performed. Two views. COMPARISON: No exams were available for comparison FINDINGS: BONES: No acute fracture is present. No bony destructive lesion is seen. JOINTS: No dislocation present. The AC joint is not widened. Glenohumeral joint space is maintained. SOFT TISSUE: Normal. IMPRESSION: Unremarkable radiographs of the left shoulder. DATA REPOSITORY: RADIATION DOSE DELIVERED:
== END 2024-10-10 15:22 | disposition home or self-care (01) ==
LOC: DIORS 15:21
PROVIDERS: PCP Student in an Organized Health Care Education/Training Program; Visit Provider Student in an Organized Health Care Education/Training Program
DX: M25.512 Pain in left shoulder (principal)
CPT/HCPCS: 73030